=== PATIENT | female | born 1965 | race Caucasian/White ===

== ENCOUNTER → 2018-08-13 | Outpatient (CLI) | payer OTHER | LOC: FIMAGING 11:16 | PROVIDERS: ATTEND Family Medicine | DX: Z12.31 Encounter for screening mammogram for malignant neoplasm of breast (principal) ==

== ENCOUNTER → 2019-02-25 | Outpatient (CLI) | payer OTHER | LOC: FIMAGING 09:38 | PROVIDERS: ATTEND Family Medicine | DX: M25.761 Osteophyte, right knee (principal); M25.762 Osteophyte, left knee; Z82.61 Family history of arthritis ==